=== PATIENT | female | born 1960 | race Caucasian/White ===

== ENCOUNTER → 2017-10-16 | Outpatient (CLI) | payer MEDICARE, BC ==
[~2017-10-16] MED LIST: ANTIVERT/2525 MG PO; ASPIRIN81 M1 PO; COZAAR100 MG PO; DARVOCET N 1001 TAB PO; DAYPRO600 M1 PO; GLUCOPHAGE1000 MG PO; HYDROCODONE BIT1 T11 PO; MOTRIN800 MG PO; ROBAXIN750 MG PO; SYNTHROID0.025 MG PO; TEMAZEPAM15 MG PO; TENORMIN50 MG PO; VICODIN ES 7501 TAB PO; VICTOZA 2-0.6 MG/0.1 SQ; XANAX0.5 MG PO; ZOLOFT50 MG PO
--- NOTE | ~2017-10-16 | ST ---
[place], [place] EXERCISE STRESS TEST REPORT NAME: [facility]: [id number] UNIT #: [id number] ROOM: DOCTOR: DEBRA ONEAL MD BIRTHDATE: [birth year] DOS: 10/16/2017 REFERRING PHYSICIAN: Dr. Pearson. INDICATION: Shortness of breath and preoperative clearance. The patient underwent a standard protocol Lexiscan stress EKG. The patient's baseline EKG was normal sinus rhythm with a heart rate of 69 with blood pressure of 126/84. The patient's peak heart rate was 87 with blood pressure 118/78. The patient had no chest pain, no EKG changes, no arrhythmias. SUMMARY OF FINDINGS: Unremarkable of Lexiscan stress EKG. Please see separate report for perfusion scan imaging results. DEBRA ONEAL MD CM:STRESS:EXERCISE STRESS TEST REPORT [id number] DEBRA ONEAL MD
== END | disposition home or self-care (01) ==
LOC: CARD 02:57
DX: Z01.818 Encounter for other preprocedural examination (principal); R06.02 Shortness of breath; R53.81 Other malaise

== ENCOUNTER → 2018-11-22 | Outpatient (CLI) | payer MEDICARE ==
[2018-11-22 12:18] LABS: BASO # 0.1 10*3/uL (0.0-0.1); BASO % 0.6 % (0.0-1.0); EOS # 0.2 10*3/uL (0.0-0.4); EOS % 1.7 % (1.0-4.0); HEMATOCRIT 44.7 % (37.0-47.0); HEMOGLOBIN 15.5 g/dl (12.0-16.0); LYMPH # 1.4 10*3/uL (1.3-4.4); LYMPH % 16.3 % (27.0-41.0); MEAN CELL VOLUME 94.1 fl (81.0-99.0); MEAN CORPUSCULAR HGB 32.6 pg (27.0-31.0); MEAN CORPUSCULAR HGB CONC 34.7 g/dl (33.0-37.0); MEAN PLATELET VOLUME 12.9 fl (9.6-12.3); MONO # 1.1 10*3/uL (0.1-1.0); MONO % 12.3 % (3.0-9.0); NEUT # 5.9 10*3/uL (2.3-7.9); NEUT % 68.4 % (47.0-73.0); PLATELET COUNT AUTOMATED 182 10*3/uL (130-400); RED BLOOD COUNT 4.75 10*6/uL (4.10-5.10); RED CELL DISTRI WIDTH 12.6 % (0-14.5); WHITE BLOOD COUNT 8.6 10*3/uL (4.8-10.8)
[2018-11-22 12:48] LABS: ALBUMIN 3.7 gm/dl (3.1-4.5); ALKALINE PHOSPHATASE 159 U/L (45-117); BUN 13 mg/dl (7-24); CHLORIDE 106 mmol/L (98-107); CHOLESTEROL 137 mg/dL (<200); CREATININE 0.97 mg/dL (0.55-1.02); FREE T4 0.59 ng/dl (0.76-1.46); HDL CHOLESTEROL 35 mg/dl (40-60); LDL CHOLESTEROL 40 mg/dL (9-159); SGOT/AST 55 IU/L (3-35); SGPT/ALT 127 U/L (12-78); SODIUM 139 mmol/L (136-145); TOTAL PROTEIN 7.3 gm/dL (6.4-8.2); TRIGLYCERIDES 311 mg/dl (<150); VLDL CHOLESTEROL 62 mg/dL (6-40)
[2018-11-22 14:21] LABS: VITAMIN D, 25-HYDROXY 26.4 ng/mL (30-100)
== END | disposition home or self-care (01) ==
LOC: CT 11:00 → LAB 11:21
PROVIDERS: Internal Medicine
DX: R10.32 Left lower quadrant pain (principal); I10 Essential (primary) hypertension; E11.9 Type 2 diabetes mellitus without complications; E55.9 Vitamin D deficiency, unspecified; E78.9 Disorder of lipoprotein metabolism, unspecified; D52.9 Folate deficiency anemia, unspecified; D51.9 Vitamin B12 deficiency anemia, unspecified

== ENCOUNTER → 2018-12-28 | Outpatient (CLI) | payer OTHER | END | disposition home or self-care (01) | LOC: MAMMO 16:51 | DX: Z12.31 Encounter for screening mammogram for malignant neoplasm of breast (principal) ==

== ENCOUNTER → 2019-01-20 | Outpatient (CLI) | payer OTHER | END | disposition home or self-care (01) | LOC: RAD 14:49 | DX: M25.532 Pain in left wrist (principal) ==

== ENCOUNTER → 2019-02-09 | Outpatient (CLI) | payer OTHER | END | disposition home or self-care (01) | LOC: US 10:26 | DX: M79.605 Pain in left leg (principal); M79.604 Pain in right leg ==

== ENCOUNTER → 2019-06-06 | Outpatient (CLI) | payer OTHER | END | disposition home or self-care (01) | LOC: US 12:28 | DX: I73.9 Peripheral vascular disease, unspecified (principal); I10 Essential (primary) hypertension; E11.9 Type 2 diabetes mellitus without complications ==

== ENCOUNTER → 2019-07-07 | Outpatient (CLI) | payer OTHER | END | disposition home or self-care (01) | LOC: CARD 13:17 | DX: R94.31 Abnormal electrocardiogram [ECG] [EKG] (principal) ==

== ENCOUNTER → 2019-08-05 | Outpatient (CLI) | payer OTHER | END | disposition home or self-care (01) | LOC: RESCLI 01:34 | DX: E11.65 Type 2 diabetes mellitus with hyperglycemia (principal); E03.9 Hypothyroidism, unspecified; E78.5 Hyperlipidemia, unspecified; F32.9 Major depressive disorder, single episode, unspecified; G89.29 Other chronic pain; M54.2 Cervicalgia; G47.00 Insomnia, unspecified; E55.9 Vitamin D deficiency, unspecified; E53.8 Deficiency of other specified B group vitamins; K76.0 Fatty (change of) liver, not elsewhere classified; I10 Essential (primary) hypertension; Z86.73 Personal history of transient ischemic attack (TIA), and cerebral infarction without residual deficits; Z90.710 Acquired absence of both cervix and uterus ==

== ENCOUNTER → 2019-08-26 | Outpatient (CLI) | payer OTHER ==
[2019-08-26 10:42] LABS: BASO # 0.1 10*3/uL (0.0-0.1); BASO % 0.6 % (0.0-1.0); EOS # 0.2 10*3/uL (0.0-0.4); EOS % 2.2 % (1.0-4.0); HEMATOCRIT 46.4 % (37.0-47.0); HEMOGLOBIN 14.8 g/dl (12.0-16.0); LYMPH # 1.7 10*3/uL (1.3-4.4); LYMPH % 16.8 % (27.0-41.0); MEAN CELL VOLUME 97.5 fl (81.0-99.0); MEAN CORPUSCULAR HGB 31.1 pg (27.0-31.0); MEAN CORPUSCULAR HGB CONC 31.9 g/dl (33.0-37.0); MEAN PLATELET VOLUME 13.1 fl (9.6-12.3); MONO # 1.2 10*3/uL (0.1-1.0); NEUT # 6.9 10*3/uL (2.3-7.9); NEUT % 68.1 % (47.0-73.0); PLATELET COUNT AUTOMATED 207 10*3/uL (130-400); RED BLOOD COUNT 4.76 10*6/uL (4.10-5.10); RED CELL DISTRI WIDTH 12.9 % (0-14.5); WHITE BLOOD COUNT 10.2 10*3/uL (4.8-10.8)
[2019-08-26 11:10] LABS: ALBUMIN 3.9 gm/dl (3.1-4.5); BUN 22 mg/dl (7-24); CHLORIDE 109 mmol/L (98-107); POTASSIUM 4.4 mmol/L (3.5-5.1); SODIUM 141 mmol/L (136-145)
[2019-08-26 11:16] LABS: ALKALINE PHOSPHATASE 116 U/L (45-117); CHOLESTEROL 118 mg/dL (<200); CREATININE 1.07 mg/dL (0.55-1.02); HDL CHOLESTEROL 28 mg/dl (40-60); SGOT/AST 18 IU/L (3-35); SGPT/ALT 26 U/L (12-78); TOTAL PROTEIN 7.3 gm/dL (6.4-8.2); TRIGLYCERIDES 466 mg/dl (<150)
[2019-08-26 11:32] LABS: VITAMIN D, 25-HYDROXY 33.2 ng/mL (30-100)
[2019-08-27 10:08] LABS: CREATININE,URINE 46.1 mg/dL (Not Estab.)
== END | disposition home or self-care (01) ==
LOC: LAB 09:42
PROVIDERS: Internal Medicine; Internal Medicine Endocrinology, Diabetes & Metabolism
DX: E11.65 Type 2 diabetes mellitus with hyperglycemia (principal); E55.9 Vitamin D deficiency, unspecified; E53.8 Deficiency of other specified B group vitamins; E78.5 Hyperlipidemia, unspecified

== ENCOUNTER → 2019-09-08 | Outpatient (CLI) | payer OTHER | END | disposition home or self-care (01) | LOC: RESCLI 00:34 | DX: E11.65 Type 2 diabetes mellitus with hyperglycemia (principal); E03.9 Hypothyroidism, unspecified; E78.5 Hyperlipidemia, unspecified; F32.9 Major depressive disorder, single episode, unspecified; G89.29 Other chronic pain; M54.2 Cervicalgia; G47.00 Insomnia, unspecified; E55.9 Vitamin D deficiency, unspecified; E53.8 Deficiency of other specified B group vitamins; K76.0 Fatty (change of) liver, not elsewhere classified; I10 Essential (primary) hypertension; E78.1 Pure hyperglyceridemia; L40.9 Psoriasis, unspecified; Z85.42 Personal history of malignant neoplasm of other parts of uterus; R16.0 Hepatomegaly, not elsewhere classified; Z86.73 Personal history of transient ischemic attack (TIA), and cerebral infarction without residual deficits; Z90.710 Acquired absence of both cervix and uterus; Z98.890 Other specified postprocedural states; Z79.82 Long term (current) use of aspirin; Z79.84 Long term (current) use of oral hypoglycemic drugs; Z79.899 Other long term (current) drug therapy; Z88.5 Allergy status to narcotic agent ==

== ENCOUNTER → 2019-12-31 | Outpatient (CLI) | payer OTHER ==
[2019-12-31 07:57] LABS: ALBUMIN 3.8 gm/dl (3.1-4.5); CREATININE 1.24 mg/dL (0.55-1.02); FREE T4 1.36 ng/dl (0.76-1.46); POTASSIUM 3.9 mmol/L (3.5-5.1)
[2019-12-31 08:02] LABS: THYROID STIM HORMONE (HS) 2.5 uIU/ml (0.358-4.75)
[2019-12-31 08:39] LABS: VITAMIN D, 25-HYDROXY 55.5 ng/mL (30-100)
[2020-01-01 08:03] LABS: CREATININE,URINE 40.6 mg/dL (Not Estab.)
[2020-01-02 13:03] LABS: THYROID PEROXIDASE (TPO) AB 89 IU/mL (0-34)
[2020-01-03 14:04] LABS: THYROGLOBULIN ANTIBODY <1.0 IU/mL (0.0-0.9)
== END | disposition home or self-care (01) ==
LOC: LAB 06:21
PROVIDERS: Internal Medicine Endocrinology, Diabetes & Metabolism
DX: E03.9 Hypothyroidism, unspecified (principal); E55.9 Vitamin D deficiency, unspecified; E53.8 Deficiency of other specified B group vitamins; E11.65 Type 2 diabetes mellitus with hyperglycemia

== ENCOUNTER → 2020-01-18 | Outpatient (CLI) | payer OTHER | END | disposition home or self-care (01) | LOC: RESCLI 00:14 | DX: E11.65 Type 2 diabetes mellitus with hyperglycemia (principal); I40.9 Acute myocarditis, unspecified; E03.9 Hypothyroidism, unspecified; H33.311 Horseshoe tear of retina without detachment, right eye; E78.5 Hyperlipidemia, unspecified; F32.9 Major depressive disorder, single episode, unspecified; G89.29 Other chronic pain; G47.00 Insomnia, unspecified; E55.9 Vitamin D deficiency, unspecified; K76.0 Fatty (change of) liver, not elsewhere classified; E78.1 Pure hyperglyceridemia; E78.2 Mixed hyperlipidemia; I12.9 Hypertensive chronic kidney disease with stage 1 through stage 4 chronic kidney disease, or unspecified chronic kidney disease; E11.22 Type 2 diabetes mellitus with diabetic chronic kidney disease; N18.3 Chronic kidney disease, stage 3 (moderate); E11.21 Type 2 diabetes mellitus with diabetic nephropathy; E53.8 Deficiency of other specified B group vitamins; M54.2 Cervicalgia; Z85.42 Personal history of malignant neoplasm of other parts of uterus; Z90.710 Acquired absence of both cervix and uterus; Z79.4 Long term (current) use of insulin; Z78.0 Asymptomatic menopausal state; Z86.73 Personal history of transient ischemic attack (TIA), and cerebral infarction without residual deficits; Z79.82 Long term (current) use of aspirin; Z79.899 Other long term (current) drug therapy; Z98.890 Other specified postprocedural states; Z88.8 Allergy status to other drugs, medicaments and biological substances ==

== ENCOUNTER → 2020-03-13 | Outpatient (CLI) | payer OTHER ==
[2020-03-13 12:16] LABS: HEMATOCRIT 43.8 % (37.0-47.0); MEAN CELL VOLUME 91.3 fl (81.0-99.0); MEAN CORPUSCULAR HGB CONC 31.7 g/dl (33.0-37.0); MEAN PLATELET VOLUME 12.9 fl (9.6-12.3); PLATELET COUNT AUTOMATED 194 10*3/uL (130-400); RED CELL DISTRI WIDTH 14.6 % (0-14.5); WHITE BLOOD COUNT 8.2 10*3/uL (4.8-10.8)
[2020-03-13 12:22] LABS: ALBUMIN 3.9 gm/dl (3.1-4.5); ALKALINE PHOSPHATASE 50 U/L (45-117); BILIRUBIN, DIRECT 0.1 mg/dL (0.0-0.2); BUN 13 mg/dl (7-24); CHLORIDE 106 mmol/L (98-107); CREATININE 0.93 mg/dL (0.55-1.02); POTASSIUM 4.1 mmol/L (3.5-5.1); SGOT/AST 19 IU/L (3-35); SGPT/ALT 25 U/L (12-78); SODIUM 140 mmol/L (136-145); TOTAL PROTEIN 7.3 gm/dL (6.4-8.2)
[2020-03-13 12:39] LABS: BURR CELLS FEW; OVALOCYTES FEW; PLATELET SUFFICIENCY NORMAL (NORMAL); POLYCHROMASIA SLIGHT; TOTAL CELLS COUNTED 100 #CELLS
== END ==
LOC: LAB 11:49
PROVIDERS: Podiatrist Foot & Ankle Surgery
DX: B35.1 Tinea unguium (principal)

== ENCOUNTER → 2020-04-27 | Outpatient (CLI) | payer OTHER ==
[2020-04-27 12:17] LABS: ALBUMIN 4.2 gm/dl (3.1-4.5); CREATININE 1.21 mg/dL (0.55-1.02); FREE T4 1.01 ng/dl (0.76-1.46); POTASSIUM 3.9 mmol/L (3.5-5.1)
[2020-04-27 12:23] LABS: THYROID STIM HORMONE (HS) 2.75 uIU/ml (0.358-4.75)
== END | disposition home or self-care (01) ==
LOC: LAB 11:31
PROVIDERS: ATTEND Internal Medicine Endocrinology, Diabetes & Metabolism
DX: E11.65 Type 2 diabetes mellitus with hyperglycemia (principal); E03.9 Hypothyroidism, unspecified; E78.1 Pure hyperglyceridemia

== ENCOUNTER → 2020-05-30 | Outpatient (CLI) | payer OTHER | END | disposition home or self-care (01) | LOC: CARD 08:30 | PROVIDERS: ATTEND Internal Medicine | DX: R06.02 Shortness of breath (principal) ==

== ENCOUNTER → 2020-06-06 | Outpatient (CLI) | payer OTHER | END | disposition home or self-care (01) | LOC: RESCLI 00:42 | PROVIDERS: ATTEND Internal Medicine Nephrology | DX: G89.29 Other chronic pain (principal); I10 Essential (primary) hypertension; K76.0 Fatty (change of) liver, not elsewhere classified; E11.65 Type 2 diabetes mellitus with hyperglycemia; E03.9 Hypothyroidism, unspecified; E78.5 Hyperlipidemia, unspecified; F32.9 Major depressive disorder, single episode, unspecified; E55.9 Vitamin D deficiency, unspecified; E53.8 Deficiency of other specified B group vitamins; G47.00 Insomnia, unspecified; E11.42 Type 2 diabetes mellitus with diabetic polyneuropathy; K21.9 Gastro-esophageal reflux disease without esophagitis; J30.2 Other seasonal allergic rhinitis; Z23 Encounter for immunization; Z98.890 Other specified postprocedural states; Z95.5 Presence of coronary angioplasty implant and graft; Z90.710 Acquired absence of both cervix and uterus; Z79.899 Other long term (current) drug therapy; Z88.8 Allergy status to other drugs, medicaments and biological substances ==

== ENCOUNTER → 2020-06-29 | Outpatient (CLI) | payer OTHER | END | disposition home or self-care (01) | LOC: COVID19 13:02 | PROVIDERS: ATTEND Internal Medicine | DX: U07.1 COVID-19 (principal) ==

== ENCOUNTER → 2020-09-05 | Outpatient (CLI) | payer OTHER | END | disposition home or self-care (01) | LOC: RAD 15:45 | PROVIDERS: ATTEND Internal Medicine | DX: M25.552 Pain in left hip (principal) ==

== ENCOUNTER → 2020-09-18 | Outpatient (CLI) | payer OTHER | END | disposition home or self-care (01) | LOC: RESCLI 00:29 | PROVIDERS: ATTEND Internal Medicine | DX: Z98.890 Other specified postprocedural states (principal); I10 Essential (primary) hypertension; K76.0 Fatty (change of) liver, not elsewhere classified; E11.65 Type 2 diabetes mellitus with hyperglycemia; E03.9 Hypothyroidism, unspecified; E78.5 Hyperlipidemia, unspecified; F32.9 Major depressive disorder, single episode, unspecified; E55.9 Vitamin D deficiency, unspecified; E53.8 Deficiency of other specified B group vitamins; G89.29 Other chronic pain; G47.00 Insomnia, unspecified; E11.42 Type 2 diabetes mellitus with diabetic polyneuropathy; K21.9 Gastro-esophageal reflux disease without esophagitis; J30.2 Other seasonal allergic rhinitis; M54.5 Low back pain; Z95.5 Presence of coronary angioplasty implant and graft; Z79.4 Long term (current) use of insulin; Z86.16 Personal history of COVID-19; Z90.710 Acquired absence of both cervix and uterus; Z91.81 History of falling; Z79.899 Other long term (current) drug therapy; Z79.82 Long term (current) use of aspirin; Z88.8 Allergy status to other drugs, medicaments and biological substances ==

== ENCOUNTER → 2020-10-03 | Outpatient (CLI) | payer OTHER ==
[2020-10-03 14:49] LABS: BASO % 0.5 % (0.0-1.0); EOS # 0.2 10*3/uL (0.0-0.4); HEMATOCRIT 41.1 % (37.0-47.0); LYMPH # 1.3 10*3/uL (1.3-4.4); LYMPH % 15.4 % (27.0-41.0); MEAN CELL VOLUME 92.8 fl (81.0-99.0); MEAN CORPUSCULAR HGB 30.9 pg (27.0-31.0); MEAN CORPUSCULAR HGB CONC 33.3 g/dl (33.0-37.0); MEAN PLATELET VOLUME 13.3 fl (9.6-12.3); MONO # 0.9 10*3/uL (0.1-1.0); MONO % 10.3 % (3.0-9.0); NEUT % 71.4 % (47.0-73.0); PLATELET COUNT AUTOMATED 167 10*3/uL (130-400); RED BLOOD COUNT 4.43 10*6/uL (4.10-5.10); RED CELL DISTRI WIDTH 12.8 % (0-14.5); WHITE BLOOD COUNT 8.4 10*3/uL (4.8-10.8)
[2020-10-03 15:05] LABS: ALBUMIN 3.5 gm/dl (3.1-4.5); ALKALINE PHOSPHATASE 131 U/L (45-117); BUN 10 mg/dl (7-24); CHLORIDE 102 mmol/L (98-107); CHOLESTEROL 103 mg/dL (<200); CREATININE 0.94 mg/dL (0.55-1.02); HDL CHOLESTEROL 33 mg/dl (40-60); SGOT/AST 15 IU/L (3-35); SGPT/ALT 27 U/L (12-78); SODIUM 135 mmol/L (136-145); TRIGLYCERIDES 400 mg/dl (<150)
[2020-10-03 15:38] LABS: VITAMIN D, 25-HYDROXY 38.3 ng/mL (30-100)
== END | disposition home or self-care (01) ==
LOC: LAB 14:14
PROVIDERS: ATTEND Hospitalist
DX: I10 Essential (primary) hypertension (principal); K76.0 Fatty (change of) liver, not elsewhere classified; E11.65 Type 2 diabetes mellitus with hyperglycemia; E78.5 Hyperlipidemia, unspecified; M54.5 Low back pain; E55.9 Vitamin D deficiency, unspecified; Z91.81 History of falling

== ENCOUNTER → 2020-10-17 | Outpatient (CLI) | payer OTHER | END | disposition home or self-care (01) | LOC: MRI 13:00 | PROVIDERS: ATTEND Internal Medicine | DX: M47.816 Spondylosis without myelopathy or radiculopathy, lumbar region (principal); M48.061 Spinal stenosis, lumbar region without neurogenic claudication; M25.78 Osteophyte, vertebrae; M48.07 Spinal stenosis, lumbosacral region ==

== ENCOUNTER → 2020-11-28 | Outpatient (CLI) | payer OTHER | END | disposition home or self-care (01) | LOC: RESCLI 03:25 | PROVIDERS: ATTEND Internal Medicine | DX: K76.0 Fatty (change of) liver, not elsewhere classified (principal); I10 Essential (primary) hypertension; E11.65 Type 2 diabetes mellitus with hyperglycemia; E03.9 Hypothyroidism, unspecified; E78.5 Hyperlipidemia, unspecified; F32.9 Major depressive disorder, single episode, unspecified; E55.9 Vitamin D deficiency, unspecified; E53.8 Deficiency of other specified B group vitamins; G89.29 Other chronic pain; G47.00 Insomnia, unspecified; E11.42 Type 2 diabetes mellitus with diabetic polyneuropathy; K21.9 Gastro-esophageal reflux disease without esophagitis; J30.2 Other seasonal allergic rhinitis; M54.5 Low back pain; Z95.5 Presence of coronary angioplasty implant and graft; Z98.890 Other specified postprocedural states; Z79.4 Long term (current) use of insulin; Z79.899 Other long term (current) drug therapy; Z79.82 Long term (current) use of aspirin; Z90.710 Acquired absence of both cervix and uterus; Z88.8 Allergy status to other drugs, medicaments and biological substances ==

== ENCOUNTER → 2021-02-25 | Outpatient (CLI) | payer OTHER ==
[2021-02-25 10:53] LABS: ALBUMIN 3.7 gm/dl (3.1-4.5); ALKALINE PHOSPHATASE 66 U/L (45-117); BUN 19 mg/dl (7-24); CHLORIDE 109 mmol/L (98-107); CHOLESTEROL 105 mg/dL (<200); CREATININE 0.87 mg/dL (0.55-1.02); POTASSIUM 3.6 mmol/L (3.5-5.1); SGOT/AST 18 IU/L (3-35); SGPT/ALT 19 U/L (12-78); SODIUM 139 mmol/L (136-145); TRIGLYCERIDES 171 mg/dl (<150)
[2021-02-25 10:59] LABS: FREE T4 0.95 ng/dl (0.76-1.46); LDL CHOLESTEROL 35 mg/dL (9-159)
[2021-02-25 11:26] LABS: VITAMIN D, 25-HYDROXY 57.6 ng/mL (30-100)
[2021-02-26 04:06] LABS: LDL CHOLESTEROL (DIRECT) 45 mg/dL (0-99)
[2021-02-26 10:07] LABS: CREATININE,URINE 60.1 mg/dL (Not Estab.)
== END | disposition home or self-care (01) ==
LOC: LAB 09:57
PROVIDERS: ATTEND Internal Medicine Endocrinology, Diabetes & Metabolism
DX: E11.65 Type 2 diabetes mellitus with hyperglycemia (principal); E55.9 Vitamin D deficiency, unspecified; E53.8 Deficiency of other specified B group vitamins; E03.9 Hypothyroidism, unspecified; E78.2 Mixed hyperlipidemia

== ENCOUNTER → 2021-03-13 | Outpatient (CLI) | payer OTHER | END | disposition home or self-care (01) | LOC: RESCLI 00:21 | PROVIDERS: ATTEND Internal Medicine Nephrology | DX: A08.8 Other specified intestinal infections (principal); Z98.890 Other specified postprocedural states; I10 Essential (primary) hypertension; K76.0 Fatty (change of) liver, not elsewhere classified; E11.65 Type 2 diabetes mellitus with hyperglycemia; E03.9 Hypothyroidism, unspecified; E78.5 Hyperlipidemia, unspecified; F32.9 Major depressive disorder, single episode, unspecified; E55.9 Vitamin D deficiency, unspecified; E53.8 Deficiency of other specified B group vitamins; G89.29 Other chronic pain; G47.00 Insomnia, unspecified; E11.42 Type 2 diabetes mellitus with diabetic polyneuropathy; K21.9 Gastro-esophageal reflux disease without esophagitis; J30.2 Other seasonal allergic rhinitis; M54.5 Low back pain; G25.81 Restless legs syndrome; I95.9 Hypotension, unspecified; Z79.4 Long term (current) use of insulin; Z95.5 Presence of coronary angioplasty implant and graft; Z88.8 Allergy status to other drugs, medicaments and biological substances; Z79.82 Long term (current) use of aspirin; Z79.899 Other long term (current) drug therapy ==

== ENCOUNTER → 2021-06-12 | Outpatient (CLI) | payer OTHER ==
[2021-06-12 14:36] LABS: ALBUMIN 3.2 gm/dl (3.1-4.5); ALKALINE PHOSPHATASE 116 U/L (45-117); BUN 11 mg/dl (7-24); CHLORIDE 104 mmol/L (98-107); CHOLESTEROL 115 mg/dL (<200); CREATININE 0.85 mg/dL (0.55-1.02); POTASSIUM 3.8 mmol/L (3.5-5.1); SGOT/AST 17 IU/L (3-35); SGPT/ALT 25 U/L (12-78); SODIUM 140 mmol/L (136-145); TOTAL PROTEIN 6.6 gm/dL (6.4-8.2); TRIGLYCERIDES 379 mg/dl (<150)
[2021-06-12 14:42] LABS: FREE T4 0.81 ng/dl (0.76-1.46); LDL CHOLESTEROL 10 mg/dL (9-159)
[2021-06-12 15:15] LABS: VITAMIN D, 25-HYDROXY 32.4 ng/mL (30-100)
[2021-06-13 12:07] LABS: CREATININE,URINE 63.5 mg/dL (Not Estab.)
== END | disposition home or self-care (01) ==
LOC: LAB 12:00
PROVIDERS: ATTEND Internal Medicine Endocrinology, Diabetes & Metabolism
DX: E11.65 Type 2 diabetes mellitus with hyperglycemia (principal); E53.8 Deficiency of other specified B group vitamins; E55.9 Vitamin D deficiency, unspecified; E03.9 Hypothyroidism, unspecified

== ENCOUNTER → 2021-10-23 | Outpatient (CLI) | payer MEDICARE | END | disposition home or self-care (01) | LOC: RESCLI 13:27 | PROVIDERS: ATTEND Internal Medicine Nephrology | DX: E11.42 Type 2 diabetes mellitus with diabetic polyneuropathy (principal); E11.65 Type 2 diabetes mellitus with hyperglycemia; Z79.899 Other long term (current) drug therapy; Z79.4 Long term (current) use of insulin; Z79.82 Long term (current) use of aspirin ==

== ENCOUNTER → 2021-11-04 | Outpatient (CLI) | payer MEDICARE | END | disposition home or self-care (01) | LOC: RAD 09:00 | PROVIDERS: ATTEND Internal Medicine | DX: Z12.31 Encounter for screening mammogram for malignant neoplasm of breast (principal); Z78.0 Asymptomatic menopausal state ==

== ENCOUNTER → 2022-01-07 | Outpatient (CLI) | payer OTHER ==
[2022-01-07 09:33] LABS: BASO # 0.1 10*3/uL (0.0-0.1); BASO % 0.6 % (0.0-1.0); EOS # 0.1 10*3/uL (0.0-0.4); EOS % 1.6 % (1.0-4.0); LYMPH # 1.5 10*3/uL (1.3-4.4); LYMPH % 17.8 % (27.0-41.0); MEAN CELL VOLUME 91.5 fl (81.0-99.0); MEAN CORPUSCULAR HGB 31.5 pg (27.0-31.0); MEAN CORPUSCULAR HGB CONC 34.4 g/dl (33.0-37.0); MEAN PLATELET VOLUME 13.3 fl (9.6-12.3); MONO % 12.1 % (3.0-9.0); NEUT # 5.7 10*3/uL (2.3-7.9); NEUT % 67.4 % (47.0-73.0); PLATELET COUNT AUTOMATED 155 10*3/uL (130-400); WHITE BLOOD COUNT 8.5 10*3/uL (4.8-10.8)
[2022-01-07 10:15] LABS: CREATININE 1.12 mg/dL (0.55-1.02); POTASSIUM 4.2 mmol/L (3.5-5.1); THYROXINE (T4) TOTAL 6.8 ug/dl (4.8-13.9)
[2022-01-07 10:21] LABS: VITAMIN D, 25-HYDROXY 23.5 ng/mL (30-100)
[2022-01-07 10:22] LABS: THYROID STIM HORMONE (HS) 13.5 uIU/ml (0.358-4.75)
== END | disposition home or self-care (01) ==
LOC: LAB 09:09
PROVIDERS: ATTEND Internal Medicine
DX: E11.9 Type 2 diabetes mellitus without complications (principal); E03.9 Hypothyroidism, unspecified; I10 Essential (primary) hypertension; E55.9 Vitamin D deficiency, unspecified; E78.2 Mixed hyperlipidemia

== ENCOUNTER → 2022-05-28 | Outpatient (CLI) | payer OTHER | END | disposition home or self-care (01) | LOC: CARD 00:10 | PROVIDERS: ATTEND Internal Medicine | DX: I10 Essential (primary) hypertension (principal); R60.0 Localized edema; R06.02 Shortness of breath ==

== ENCOUNTER → 2022-10-15 | Outpatient (CLI) | payer OTHER | END | disposition home or self-care (01) | LOC: RAD 11:17 | PROVIDERS: ATTEND Internal Medicine | DX: R05.9 Cough, unspecified (principal) ==

== ENCOUNTER → 2023-01-06 | Outpatient (CLI) | payer OTHER | END | disposition home or self-care (01) | LOC: RESCLI 00:23 | PROVIDERS: ATTEND Internal Medicine | DX: I13.0 Hypertensive heart and chronic kidney disease with heart failure and stage 1 through stage 4 chronic kidney disease, or unspecified chronic kidney disease (principal); E11.22 Type 2 diabetes mellitus with diabetic chronic kidney disease; I50.20 Unspecified systolic (congestive) heart failure; N18.9 Chronic kidney disease, unspecified; E03.9 Hypothyroidism, unspecified; G47.00 Insomnia, unspecified; G89.29 Other chronic pain; E55.9 Vitamin D deficiency, unspecified; K76.0 Fatty (change of) liver, not elsewhere classified; L40.9 Psoriasis, unspecified; Z95.5 Presence of coronary angioplasty implant and graft; G25.81 Restless legs syndrome; Z98.890 Other specified postprocedural states; Z79.899 Other long term (current) drug therapy ==

== ENCOUNTER 2024-03-27 01:45 | Emergency (ER) | payer OTHER ==
[~2024-03-27] VITALS: Ht 162.5 cm; Wt 113.4 kg
[~2024-03-27 01:45] MED LIST changes: +ASPIRIN CHILDRE81 MG PO; +ATORVASTATIN CA80 M1 PO; +HUMALOG100 UNIT/1 SQ; +HUMALOG100 UNIT/2 SC; +HYDROCHLOROTHIA50 M1 PO; +Imdur SA60 MG PO; +KEFLEX 500 MG E2 CAP PO; +LANTUS SOL100 UNIT/1 SC; +LEXAPRO20 MG PO; +LOPRESSOR100 M1 PO; +Lantus SC; +MELATONIN10 M2 PO; +MIRTAZAPINE30 M2 PO; +MOUNJARO2.5 MG/0.1 SQ; +OXYCODONE HCL10 M1 PO; +PANTOPRAZOLE SO40 MG PO; +PLAVIX75 M1 PO; +ROPINIROLE HYDRO2 M2 PO; -SYNTHROID0.025 MG PO; +Synthroid,Lev100 MCG PO
[2024-03-27 02:16] LABS: HEMATOCRIT 40.9 % (37.0-47.0); MEAN CELL VOLUME 98.6 fl (81.0-99.0); MEAN CORPUSCULAR HGB 31.6 pg (27.0-31.0); MEAN PLATELET VOLUME 13.3 fl (9.6-12.3); PLATELET COUNT AUTOMATED 150 10*3/uL (130-400); RED BLOOD COUNT 4.15 10*6/uL (4.10-5.10); RED CELL DISTRI WIDTH 12.8 % (0-14.5); WHITE BLOOD COUNT 12.7 10*3/uL (4.8-10.8)
[2024-03-27 02:41] LABS: MANUAL DIFF REFLEX YES
[2024-03-27 02:42] LABS: ALKALINE PHOSPHATASE 135 U/L (46-116); BUN 9 mg/dl (9-23); CHLORIDE 106 mmol/L (98-107); POTASSIUM 3.5 mmol/L (3.4-5.1); SGPT/ALT 20 U/L (5-49); TOTAL PROTEIN 6.8 gm/dL (6.0-8.0)
[2024-03-27 02:43] LABS: PLATELET SUFFICIENCY NORMAL (NORMAL); TOTAL CELLS COUNTED 100 #CELLS
[2024-03-27] MEDS ORDERED: VIBRAMYCIN100 MG PO (03:11)
[2024-03-27] MEDS ORDERED: Doxycycline Hyclate 100 MG CAP PO ONE (03:15)
[2024-03-27] MEDS ORDERED: MAGNESIUM OXIDE 400 MG TAB PO ONE (03:15)
== END 2024-03-27 03:25 | disposition home or self-care (01) ==
LOC: ED 01:45
PROVIDERS: Internal Medicine
DX: L03.115 Cellulitis of right lower limb (principal); E83.42 Hypomagnesemia; E11.9 Type 2 diabetes mellitus without complications; I10 Essential (primary) hypertension; E78.00 Pure hypercholesterolemia, unspecified; M79.7 Fibromyalgia; Z88.1 Allergy status to other antibiotic agents; Z88.5 Allergy status to narcotic agent; Z88.8 Allergy status to other drugs, medicaments and biological substances; Z95.5 Presence of coronary angioplasty implant and graft; Z90.49 Acquired absence of other specified parts of digestive tract; Z98.890 Other specified postprocedural states

== ENCOUNTER → 2024-03-30 | Outpatient (CLI) | payer OTHER ==
[~2024-03-30] MED LIST changes: +VIBRAMYCIN100 MG PO
== END | disposition home or self-care (01) ==
LOC: WOUNDCARE 01:11
PROVIDERS: ATTEND Nurse Practitioner Family
DX: E11.621 Type 2 diabetes mellitus with foot ulcer (principal); L97.511 Non-pressure chronic ulcer of other part of right foot limited to breakdown of skin; L03.115 Cellulitis of right lower limb; L02.211 Cutaneous abscess of abdominal wall; S30.821A Blister (nonthermal) of abdominal wall, initial encounter; Z90.710 Acquired absence of both cervix and uterus; Z95.5 Presence of coronary angioplasty implant and graft; Z95.818 Presence of other cardiac implants and grafts; Z86.73 Personal history of transient ischemic attack (TIA), and cerebral infarction without residual deficits; X58.XXXA Exposure to other specified factors, initial encounter; Y93.89 Activity, other specified; Y92.89 Other specified places as the place of occurrence of the external cause; Y99.8 Other external cause status

== ENCOUNTER → 2024-04-06 | Outpatient (CLI) | payer OTHER | LOC: WOUNDCARE 01:55 | PROVIDERS: ATTEND Nurse Practitioner Family | DX: L02.211 Cutaneous abscess of abdominal wall (principal); L03.115 Cellulitis of right lower limb; S30.821D Blister (nonthermal) of abdominal wall, subsequent encounter; E11.9 Type 2 diabetes mellitus without complications; E03.9 Hypothyroidism, unspecified; Z95.818 Presence of other cardiac implants and grafts; Z95.5 Presence of coronary angioplasty implant and graft; Z90.710 Acquired absence of both cervix and uterus; Z86.73 Personal history of transient ischemic attack (TIA), and cerebral infarction without residual deficits; X58.XXXD Exposure to other specified factors, subsequent encounter ==

== ENCOUNTER → 2024-04-13 | Outpatient (CLI) | payer OTHER | END | disposition home or self-care (01) | LOC: WOUNDCARE 00:57 | PROVIDERS: ATTEND Nurse Practitioner Family | DX: S30.821D Blister (nonthermal) of abdominal wall, subsequent encounter (principal); L02.211 Cutaneous abscess of abdominal wall; L03.115 Cellulitis of right lower limb; E11.9 Type 2 diabetes mellitus without complications; E03.9 Hypothyroidism, unspecified; Z86.73 Personal history of transient ischemic attack (TIA), and cerebral infarction without residual deficits; Z95.818 Presence of other cardiac implants and grafts; Z95.5 Presence of coronary angioplasty implant and graft; Z90.710 Acquired absence of both cervix and uterus; X58.XXXD Exposure to other specified factors, subsequent encounter ==

== ENCOUNTER → 2024-04-27 | Outpatient (CLI) | payer OTHER | END | disposition home or self-care (01) | LOC: WOUNDCARE 01:00 | PROVIDERS: ATTEND Nurse Practitioner Family | DX: S30.821D Blister (nonthermal) of abdominal wall, subsequent encounter (principal); L02.211 Cutaneous abscess of abdominal wall; L03.115 Cellulitis of right lower limb; E11.9 Type 2 diabetes mellitus without complications; E03.9 Hypothyroidism, unspecified; Z86.73 Personal history of transient ischemic attack (TIA), and cerebral infarction without residual deficits; Z95.818 Presence of other cardiac implants and grafts; Z95.5 Presence of coronary angioplasty implant and graft; Z90.710 Acquired absence of both cervix and uterus; X58.XXXD Exposure to other specified factors, subsequent encounter ==

== ENCOUNTER → 2024-05-02 | Outpatient (CLI) | payer OTHER | END | disposition home or self-care (01) | LOC: WOUNDCARE 02:20 | PROVIDERS: ATTEND Nurse Practitioner Family | DX: S30.821D Blister (nonthermal) of abdominal wall, subsequent encounter (principal); L02.211 Cutaneous abscess of abdominal wall; L03.115 Cellulitis of right lower limb; E11.9 Type 2 diabetes mellitus without complications; E03.9 Hypothyroidism, unspecified; Z86.73 Personal history of transient ischemic attack (TIA), and cerebral infarction without residual deficits; Z95.818 Presence of other cardiac implants and grafts; Z95.5 Presence of coronary angioplasty implant and graft; Z90.710 Acquired absence of both cervix and uterus; Z79.4 Long term (current) use of insulin; Z79.82 Long term (current) use of aspirin; Z79.899 Other long term (current) drug therapy; X58.XXXD Exposure to other specified factors, subsequent encounter ==